=== PATIENT | female | born 1990 | race Caucasian/White ===

== ENCOUNTER 2017-05-05 09:38 | Emergency (ER) | payer MEDICAID ==
[~2017-05-05] VITALS: Ht 167.6 cm; Wt 113.4 kg
[2017-05-05 09:38] VITALS: BP_SYST 148
--- NOTE | 2017-05-05 09:38 | NUR ---
BROUGHT BACK TO BED #7 AND TRIAGED, WILL ASSUME CARE
--- NOTE | 2017-05-05 09:40 | NUR ---
STATES SHE USUALLY TAKES ACYCLOVIR DAILY BUT WITH CHANGE OF INSURANCE AND MOVING SHE HAS RAN OUT AND DOESN'T HAVE A DOCTOR. NEEDS PRESCRIPTION.
--- NOTE | 2017-05-05 09:45 | NUR ---
Patient to ER bed 7 to gown for evaluation. Side rails up.
--- NOTE | 2017-05-05 09:50 | NUR ---
DR ROLLINS AT BEDSIDE FOR EVALUATION
[2017-05-05 10:03] VITALS: BP_SYST 137
--- NOTE | 2017-05-05 10:04 | NUR ---
Patient given written and verbal discharge instructions and verbalizes understanding. ER MD discussed with patient the results and treatment provided. Patient in stable condition. ID arm band removed. Rx of ACYCLOVIR given. Patient educated on pain management and to follow up with PMD. Pain Scale 2/10. Opportunity for questions provided and answered.
== END 2017-05-05 10:03 | disposition home or self-care (01) ==
LOC: SED 09:38
DX: A60.00 Herpesviral infection of urogenital system, unspecified (principal); Z88.1 Allergy status to other antibiotic agents
CPT/HCPCS: 99283